=== PATIENT | male | born 1965 | race African-American/Black ===

== ENCOUNTER 2022-08-12 10:19 | Inpatient (IN) | payer MEDICAID ==
[~2022-08-12] VITALS: Ht 188 cm; Wt 98.0 kg
[~2022-08-12 10:19] MED LIST: METO-396 PO
[2022-08-12 11:12] LABS: BASOPHILS % 0.7 % (0.0-2.0); EOSINOPHILS % 0.4 % (0.0-5.0); HEMATOCRIT. 40.8 % (42.0-52.0); HEMOGLOBIN. 13.8 g/dL (14.0-18.0); LYMPHOCYTES % 11.3 % (20.0-50.0); MEAN CORPUSCULAR HEMOGLOBIN 33.3 pg (28.0-32.0); MEAN CORPUSCULAR VOLUME 98.9 fL (80.0-94.0); MEAN PLATELET VOLUME 7.4 fl (7.4-10.4); MONOCYTES % 13.8 % (2.0-8.0); NEUTROPHILS % 73.8 % (40.0-76.0); PLATELET 335 x1000/uL (130-400); RED BLOOD CELL COUNT 4.13 mill/uL (4.7-6.1); RED CELL DISTRIBUTION WIDTH 13.8 % (11.6-14.6)
[2022-08-12 11:33] LABS: CHLORIDE 107 mEq/L (98-107)
[2022-08-12] MEDS ORDERED: AMOX-494 MT (12:05)
[2022-08-12] MEDS ORDERED: CEFTRIAXONE 1GM PREMIX 50 ML IV ONE (13:15)
[2022-08-12 13:26] LABS: BG BASE EXCESS -2.7 mmol/L (-2.0-2.0); BG CARBOXYHEMOGLOBIN 0.7 % (0.5-1.5); BG DEOXYHEMOGLOBIN 3.6 % (0.0-5.0); BG HCO3 ACT 20.3 mmol/L (22.0-26.0); BG METHEMOGLOBIN 0.3 % (0.0-1.5); BG OXYGEN SATURATION 96.4 % (92.0-98.5); BG OXYHEMOGLOBIN 95.4 % (94.0-97.0); BG PCO2 30.4 mmHg (35.0-45.0); BG PH 7.442 (7.350-7.450); BG PO2 79.8 mmHg (75.0-100.0); BG SAMPLE SITE RIGHT BRACHIAL; BG TOTAL HEMOGLOBIN 13.6 g/dL (12.0-18.0); BG VENT MODE NASAL CANNULA
[2022-08-13] VITALS (10 sets, daily range): BP systolic 143–188; BP diastolic 80–106
[2022-08-13] MEDS ORDERED: ZOLPIDEM TARTRATE 5MG TABLET PO PRN (04:30)
[2022-08-13] MEDS ORDERED: IPRATROPIUM/ALBUTEROL 0.5-3(2.5)MG/3ML NEB HHN PRN (04:30)
[2022-08-13] MEDS ORDERED: CEFTRIAXONE 1GM PREMIX 50 ML IV SCH (04:30)
[2022-08-13] MEDS ORDERED: TRAMADOL 50MG TABLET PO PRN (04:30)
[2022-08-13] MEDS ORDERED: CLONIDINE 0.1MG TABLET PO PRN (04:30)
[2022-08-13] MEDS ORDERED: ONDANSETRON HCL 4MG/2ML INJ IV PRN (04:30)
[2022-08-13] MEDS: ENOXAPARIN 40MG/0.4ML SYR SUBCUT SCH (08:58)
[2022-08-13 10:08] LABS: *AMPHETAMINES SCREEN URINE NEGATIVE (NEGATIVE); *BARBITURATES SCREEN URINE NEGATIVE (NEGATIVE); *BENZODIAZEPINES SCREEN URINE NEGATIVE (NEGATIVE); *COCAINE SCREEN URINE PRESUMTIVE POSITIVE (NEGATIVE); CANNABINOID URINE SCREEN NEGATIVE (NEGATIVE); METHADONE URINE SCREEN NEGATIVE (NEGATIVE); OPIATES URINE SCREEN NEGATIVE (NEGATIVE); PHENCYCLIDINE URINE SCREEN NEGATIVE (NEGATIVE)
[2022-08-13 12:54] LABS: BASOPHILS % 0.5 % (0.0-2.0); EOSINOPHILS % 0.7 % (0.0-5.0); HEMATOCRIT. 34.5 % (42.0-52.0); HEMOGLOBIN. 11.8 g/dL (14.0-18.0); LYMPHOCYTES % 12.5 % (20.0-50.0); MEAN CORPUSCULAR HEMOGLOBIN 33.7 pg (28.0-32.0); MEAN CORPUSCULAR VOLUME 98.6 fL (80.0-94.0); MEAN PLATELET VOLUME 7.3 fl (7.4-10.4); MONOCYTES % 10.9 % (2.0-8.0); NEUTROPHILS % 75.4 % (40.0-76.0); PLATELET 368 x1000/uL (130-400); RED CELL DISTRIBUTION WIDTH 13.5 % (11.6-14.6)
[2022-08-13 13:01] LABS: CHLORIDE 104 mEq/L (98-107)
[2022-08-13] MEDS: CEFTRIAXONE 1,000 MG in DEXTROSE 5% WATER 50 ML IV SCH (13:07)
[2022-08-13] MEDS: AMLODIPINE 5MG TABLET PO SCH (13:40)
[2022-08-14 00:29] VITALS: BP 163/88
[2022-08-14 04:01] VITALS: BP 159/96
[2022-08-14 08:00] VITALS: BP 146/74
[2022-08-14] MEDS: ENOXAPARIN 40MG/0.4ML SYR SUBCUT SCH (08:30)
[2022-08-14] MEDS: AMLODIPINE 5MG TABLET PO SCH (08:30)
[2022-08-14 12:02] VITALS: BP 133/78
[2022-08-14] MEDS: CEFTRIAXONE 1,000 MG in DEXTROSE 5% WATER 50 ML IV SCH (12:22)
[2022-08-14 16:00] VITALS: BP 144/75
[2022-08-14 20:00] VITALS: BP 122/61
[2022-08-15] VITALS: BP 144/88
[2022-08-15 04:00] VITALS: BP 145/64
[2022-08-15 08:00] VITALS: BP 137/82
[2022-08-15 08:21] LABS: BASOPHILS % 0.7 % (0.0-2.0); EOSINOPHILS % 1.6 % (0.0-5.0); HEMATOCRIT. 35.1 % (42.0-52.0); LYMPHOCYTES % 11.9 % (20.0-50.0); MEAN CORPUSCULAR HEMOGLOBIN 33.6 pg (28.0-32.0); MEAN CORPUSCULAR VOLUME 98.6 fL (80.0-94.0); MEAN PLATELET VOLUME 7.2 fl (7.4-10.4); MONOCYTES % 9.9 % (2.0-8.0); NEUTROPHILS % 75.9 % (40.0-76.0); PLATELET 461 x1000/uL (130-400); RED BLOOD CELL COUNT 3.56 mill/uL (4.7-6.1); RED CELL DISTRIBUTION WIDTH 13.5 % (11.6-14.6)
[2022-08-15 08:35] LABS: CHLORIDE 104 mEq/L (98-107)
[2022-08-15] MEDS: AMLODIPINE 5MG TABLET PO SCH (09:05)
[2022-08-15] MEDS: ENOXAPARIN 40MG/0.4ML SYR SUBCUT SCH (09:06)
[2022-08-15] MEDS: CEFTRIAXONE 1,000 MG in DEXTROSE 5% WATER 50 ML IV SCH (11:23)
[2022-08-15 12:00] VITALS: BP 145/91
[2022-08-15] MEDS ORDERED: NALOXONE HCL 0.4MG/ML VIAL IV PRN (12:45)
[2022-08-15] MEDS ORDERED: GUAI600T26 MT (12:58)
[2022-08-15] MEDS ORDERED: AMLO5TAB88 PO (12:58)
[2022-08-15] MEDS ORDERED: AZIT500T8 MT (12:58)
[2022-08-15 14:21] VITALS: BP 145/91
== END 2022-08-15 16:14 | disposition home or self-care (01) | DRG 816 ==
LOC: ER 10:19 → MICUSO 20:57 → 3WST 08-13 02:05
PROVIDERS: ADMIT Internal Medicine; ATTEND Internal Medicine
DX: T40.5X1A Poisoning by cocaine, accidental (unintentional), initial encounter (principal); J96.01 Acute respiratory failure with hypoxia; E44.0 Moderate protein-calorie malnutrition; J68.0 Bronchitis and pneumonitis due to chemicals, gases, fumes and vapors; I50.9 Heart failure, unspecified; I11.0 Hypertensive heart disease with heart failure; D53.9 Nutritional anemia, unspecified; Z20.822 Contact with and (suspected) exposure to COVID-19; F14.90 Cocaine use, unspecified, uncomplicated; F17.210 Nicotine dependence, cigarettes, uncomplicated; Z68.27 Body mass index [BMI] 27.0-27.9, adult; Z88.6 Allergy status to analgesic agent; Y92.89 Other specified places as the place of occurrence of the external cause
CPT/HCPCS: 36415; 36600; 71045; 80048; 80053; 80305; 82375; 82805; 83880; 84484; 85025; 87426; 93005; 99285; C1893; C9803; J0696; J1650; J7060